=== PATIENT | male | born 1970 | race African-American/Black ===

== ENCOUNTER 2018-10-19 13:43 | Emergency (ER) | payer SELFPAY ==
[~2018-10-19] VITALS: Ht 193 cm; Wt 82.0 kg
[2018-10-19 15:26] VITALS: BP 139/94
== END 2018-10-19 17:49 | disposition left against medical advice (07) ==
LOC: ER 13:43
DX: R10.9 Unspecified abdominal pain (principal); Z53.21 Procedure and treatment not carried out due to patient leaving prior to being seen by health care provider

== ENCOUNTER 2020-06-06 07:36 | Emergency (ER) | payer MEDICAID ==
[~2020-06-06] VITALS: Ht 193 cm; Wt 82.0 kg
[2020-06-06 07:47] VITALS: BP 143/99
[2020-06-06] MEDS ORDERED: DOXYCYCLINE HYCLATE 100MG CAPSULE PO ONE (08:15)
[2020-06-06] MEDS ORDERED: CEFTRIAXONE SODIUM 250 MG/VIAL IM ONE (08:15)
[2020-06-06] MEDS ORDERED: LIDOCAINE HCL/PF 1% 2ML VIAL INFIL ONE (08:15)
[2020-06-06] MEDS ORDERED: DOXY100C2 PO (08:15)
[2020-06-06] MEDS ORDERED: LIDOCAINE HCL 1% 20ML VIAL (Pyxis) INJ INFIL ONE (08:45)
[2020-06-10 05:10] LABS: NEISSERIA GONORRHOEAE NAA Positive (Negative)
== END 2020-06-06 09:14 | disposition home or self-care (01) ==
LOC: ER 07:36
DX: K40.90 Unilateral inguinal hernia, without obstruction or gangrene, not specified as recurrent (principal); A54.01 Gonococcal cystitis and urethritis, unspecified; A56.01 Chlamydial cystitis and urethritis; F12.90 Cannabis use, unspecified, uncomplicated
CPT/HCPCS: 87491; 87591; 96372; 99283; J0696; J3490; Z7610

== ENCOUNTER 2022-06-05 18:05 | Emergency (ER) | payer MEDICAID, OTHER ==
[~2022-06-05] VITALS: Ht 193 cm; Wt 79.0 kg
[~2022-06-05 18:05] MED LIST: DOXY100C5 PO
[2022-06-05 18:14] VITALS: BP 148/100; PULSE 95; RESP 16; TEMP 98.9; O2SAT 99
[2022-06-05] MEDS ORDERED: IBUP-2028 MT (23:51)
== END 2022-06-05 22:00 | disposition left against medical advice (07) ==
LOC: ER 18:05
DX: S09.90XA Unspecified injury of head, initial encounter (principal); F12.90 Cannabis use, unspecified, uncomplicated; Z79.899 Other long term (current) drug therapy; Y04.0XXA Assault by unarmed brawl or fight, initial encounter; Y93.89 Activity, other specified; Y92.89 Other specified places as the place of occurrence of the external cause; Y99.8 Other external cause status
CPT/HCPCS: 99281

== ENCOUNTER 2022-06-05 22:02 | Emergency (ER) | payer MEDICAID, OTHER ==
[~2022-06-05] VITALS: Ht 193 cm; Wt 84.3 kg
[2022-06-05 22:05] VITALS: BP 153/84; RESP 12; TEMP 98; O2SAT 100
[2022-06-05 22:06] VITALS: PULSE 90
[2022-06-05] MEDS ORDERED: IBUP-2028 MT (23:51)
== END 2022-06-05 23:58 | disposition home or self-care (01) ==
LOC: ER 22:02
DX: S09.90XA Unspecified injury of head, initial encounter (principal); Y04.0XXA Assault by unarmed brawl or fight, initial encounter; Y93.89 Activity, other specified; Y92.89 Other specified places as the place of occurrence of the external cause; Y99.8 Other external cause status
CPT/HCPCS: 99284

== ENCOUNTER 2023-07-24 22:57 | Emergency (ER) | payer MEDICAID ==
[~2023-07-24] VITALS: Ht 177.8 cm; Wt 70.0 kg
[~2023-07-24 22:57] MED LIST changes: +IBUP-2028 MT
[2023-07-24 23:02] VITALS: BP 132/102; PULSE 99; RESP 16; TEMP 97.7; O2SAT 98
[2023-07-24] MEDS ORDERED: BACITRACIN ZINC OINT UDPKT TOP ONE (23:15)
[2023-07-24] MEDS ORDERED: TETANUS, DIPHTHERIA, PERTUSSIS VAC/PF 0.5ML (>10YR OLD) IM ONE (23:15)
[2023-07-24] MEDS ORDERED: LIDOCAINE HCL/PF 1% 10 MG/ML 5ML VIAL INFIL ONE (23:15)
== END 2023-07-25 08:07 | disposition left against medical advice (07) ==
LOC: ER 22:57
DX: S61.511A Laceration without foreign body of right wrist, initial encounter (principal); X58.XXXA Exposure to other specified factors, initial encounter; Y93.89 Activity, other specified; Y92.89 Other specified places as the place of occurrence of the external cause; Y99.8 Other external cause status
CPT/HCPCS: 99283

== ENCOUNTER 2024-02-04 12:16 | Emergency (ER) | payer MEDICAID, OTHER ==
[~2024-02-04] VITALS: Ht 193 cm; Wt 80.0 kg
[2024-02-04 12:19] VITALS: O2SAT 97
[2024-02-04 12:30] VITALS: BP 138/88; PULSE 88; RESP 18; TEMP 98.2; O2SAT 99
[2024-02-04] MEDS ORDERED: ACETAMINOPHEN 325MG TABLET PO ONE (12:30)
[2024-02-04 12:51] LABS: BASOPHILS % 0.5 % (0.0-2.0); EOSINOPHILS % 0.3 % (0.0-5.0); HEMATOCRIT. 39.1 % (42.0-52.0); HEMOGLOBIN. 13.1 g/dL (14.0-18.0); MEAN CORPUSCULAR HEMOGLOBIN 31.5 pg (28.0-32.0); MEAN CORPUSCULAR HGB CONC 33.5 g/dL (31.0-37.0); MEAN CORPUSCULAR VOLUME 94.1 fL (80.0-94.0); MEAN PLATELET VOLUME 6.6 fl (7.4-10.4); MONOCYTES % 13.9 % (2.0-8.0); NEUTROPHILS % 64.3 % (40.0-76.0); PLATELET 228 x1000/uL (130-400); RED BLOOD CELL COUNT 4.15 mill/uL (4.7-6.1); RED CELL DISTRIBUTION WIDTH 15.4 % (11.6-14.6); WHITE BLOOD COUNT 5.2 x1000/uL (4.5-11.0)
[2024-02-04 13:08] LABS: CARBON DIOXIDE 29 mEq/L (21-32); CHLORIDE 103 mEq/L (98-107); SODIUM 138 mEq/L (136-145)
[2024-02-04 13:09] LABS: CALCIUM 9.6 mg/dL (8.7-10.4)
[2024-02-04 13:14] LABS: CREATININE 0.9 mg/dL (0.6-1.3); GLUCOSE 72 mg/dL (70-105); UREA NITROGEN BLOOD 7 mg/dL (9-23)
[2024-02-04 13:16] LABS: ALANINE AMINOTRANSFERASE 47 IU/L (10-49); ALBUMIN 4.6 g/dL (3.2-4.8); ASPARTATE AMINOTRANSFERASE 77 IU/L (<34); BILIRUBIN DIRECT 0.1 mg/dL (<=3.0); BILIRUBIN TOTAL 0.6 mg/dL (0.1-1.0); PROTEIN TOTAL 7.9 g/dL (6.0-8.3)
[2024-02-04] MEDS ORDERED: NAPR-1176 MT (14:02)
[2024-02-04] MEDS ORDERED: ACETAMINOPHEN 325MG TABLET PO NR (18:30)
== END 2024-02-04 18:31 | disposition left against medical advice (07) ==
LOC: ER 12:16
DX: K76.89 Other specified diseases of liver (principal); F12.10 Cannabis abuse, uncomplicated
CPT/HCPCS: 36415; 76700; 80048; 80076; 85025; 99284

== ENCOUNTER → 2024-06-06 | Day surgery (SDC) | payer MEDICAID ==
[~2024-06-06] VITALS: Ht 193 cm; Wt 74.8 kg
[~2024-06-06] MED LIST changes: +BUPIVACAINE HCL/PF 0.5% (5MG/ML) 10ML ONE; -DOXY100C5 PO; +HYDROMORPHONE HCL/PF 1MG/ML INJ IV PRN; -IBUP-2028 MT; +LABETALOL 5MG/ML 4ML INJ IV PRN; +MEPERIDINE HCL/PF 25MG/ML CPJ IV PRN; +ONDANSETRON HCL 4MG/2ML INJ IV PRN; +SKIN ADHESIVE 0.7 GM EA TOP ONE
[2024-06-06 06:07] LABS: POTASSIUM 4.5 mEq/L (3.5-5.1)
[2024-06-06] MEDS: LACTATED RINGERS 1,000 ML IV SCH (06:16)
== END | disposition home or self-care (01) ==
LOC: OR 05:11
PROVIDERS: ATTEND Surgery
DX: K40.90 Unilateral inguinal hernia, without obstruction or gangrene, not specified as recurrent (principal); Z79.899 Other long term (current) drug therapy; Z98.890 Other specified postprocedural states
CPT/HCPCS: 49505; 36415; 84132; J0665; C1781